=== PATIENT | male | born 1995 | race Caucasian/White ===

== ENCOUNTER 2017-08-28 13:14 | Emergency (ER) | payer BC ==
[~2017-08-28] VITALS: Ht 182.9 cm; Wt 77.1 kg
[2017-08-28 13:20] VITALS: BP 124/79
[2017-08-28] MEDS ORDERED: DIPH,PERTUSS(ACELL),TET VAC/PF 0.5 ML IM-VACC ONE (14:00)
[2017-08-28] MEDS ORDERED: BACITRACIN ZINC OINT 500U/GM, 0.9 GM ONE (14:18)
[2017-08-28] MEDS ORDERED: L.E.T SOLUTION TP ONE ×2 (14:20→14:30)
== END 2017-08-28 14:51 | disposition home or self-care (01) ==
LOC: ED 14:00
DX: S61.411A Laceration without foreign body of right hand, initial encounter (principal); X58.XXXA Exposure to other specified factors, initial encounter; Y93.89 Activity, other specified; Y92.009 Unspecified place in unspecified non-institutional (private) residence as the place of occurrence of the external cause; Y99.8 Other external cause status
CPT/HCPCS: 99283